=== PATIENT | female | born 2000 | race African-American/Black ===

== ENCOUNTER 2021-07-14 16:54 | Emergency (ER) | payer BC, SELFPAY ==
[2021-07-14 17:07] VITALS: BP 115/65; PULSE 75; RESP 16; TEMP 37.2; O2SAT 98
--- NOTE | 2021-07-14 17:51 | ED.URI ---
HPI - URI/Sore Throat General Chief Complaint: Upper Respiratory Infection Stated Complaint: sore throat/congestion Time Seen by Provider: 07/14/21 17:51 Source: patient Mode of arrival: ambulatory Limitations: no limitations History of Present Illness HPI Narrative: Donte Fairchild is a 20 yo female with no PMH who comes to [facility] with a sore throat since Friday states she she has felt poorly, is able to eat, and is able to swallow. States she has not been running a fever, as far she knows, no N/V/D Some parts of this dictation were generated by voice recognition software and may contain typographical and/or grammatical inaccuracies. Related Data Allergies Allergy/AdvReac Type Severity Reaction Status Date / Time No Known Allergies Allergy Verified 07/14/21 17:36 Review of Systems Review of Systems: CONSTITUTIONAL: Denies fever, chills, sweats. EYES: Denies visual changes, redness, discharge. ENT: Denies rhinorrhea, has congestion, has sore throat, otalgia. CARDIOVASCULAR: Denies chest pain, palpitations, edema. RESPIRATORY: Denies dyspnea, wheezing, cough GASTROINTESTINAL: Denies abdominal pain, nausea, vomiting, diarrhea. GENITOURINARY: Denies dysuria, hematuria, abnormal discharge SKIN: Denies rash or itching. NEUROLOGIC: Denies numbness, or focal weakness. PSYCHIATRIC: Denies anxiety or depression. [facility] Past Medical History Medical History (Updated 07/14/21 @ 18:11 by Teresa Cevallos CNP) No acute medical problems Family History Family History (Updated 07/14/21 @ 17:59 by Teresa Cevallos CNP) Grandparent Diabetes mellitus Social History Social History (Updated 07/14/21 @ 17:59 by Teresa Cevallos CNP) Smoking status: Never smoker Comments At time of signature, I agree with nursing past medical, surgical, social and family history. There is no relevant family history pertinent to the presenting complaint. Exam Narrative: GENERAL: This is a well-nourished, well-developed patient, in mild distress. HEAD: normocephalic, atraumatic. EYES: Sclera clear/white. Vision is grossly intact. EARS: External ears normal, auditory canals clear and without drainage, TMs normal without perforation. Hearing grossly intact. NOSE: External nose normal without nasal discharge, nares without redness, no rhinorrhea. THROAT: Mucous membranes moist, posterior pharynx erythema with moderate swelling, no exudate NECK: Neck supple, non-tender lymph nodes CARDIOVASCULAR: Regular rate and rhythm without murmurs, gallops, or rubs. RESPIRATORY: Clear to auscultation. Breath sounds equal bilaterally. No wheezes, rales, or rhonchi. GASTROINTESTINAL: Abdomen soft, SKIN: warm, intact with no suspicious lesions or rash, good texture and turgor. NEURO: awake, alert, and oriented to person, place and time. There were no obvious focal neurologic abnormalities. Steady gait EXTREMITIES: Normal range of motion. BACK: Nontender without deformity Course Course Emergency Course: Patient here with sore throat that occurred since Friday-she stated she had a positive strep test at home Patient strep test here was negative Started on prednisone and Mucinex Vital Signs Vital signs: Vital Signs Temperature 98.9 F 07/14/21 17:07 Pulse Rate 75 07/14/21 17:07 Respiratory Rate 16 07/14/21 17:07 Blood Pressure 115/65 07/14/21 17:07 Pulse Oximetry 98 07/14/21 17:07 Temperature 98.9 F 07/14/21 17:07 Pulse Rate 75 07/14/21 17:07 Respiratory Rate 16 07/14/21 17:07 Blood Pressure 115/65 07/14/21 17:07 Pulse Oximetry 98 07/14/21 17:07 MDM - URI/Sore Throat Differential Diagnosis Differential diagnosis: Likely upper respiratory infection, viral infection, bronchitis, pharyngitis and other Lab Data Labs: Strep Screen Presumptive Negative *(Reference Range: Negative)* Critical Care Time Critical Care Time Critical Care Time:
== END 2021-07-14 18:15 | disposition home or self-care (01) ==
PROVIDERS: Emergency Provider Nurse Practitioner
DX: J02.9 Acute pharyngitis, unspecified (principal)
CPT/HCPCS: 87081; 87880; 99203; G0463

== ENCOUNTER 2023-04-27 19:33 | Emergency (ER) | payer OTHER, MEDICAID, SELFPAY ==
[2023-04-27 19:34] VITALS: BP 132/86; PULSE 99; RESP 15; TEMP 37.3; O2SAT 100
[2023-04-27 20:05] VITALS: BP 109/75; PULSE 101; RESP 18; O2SAT 100
--- NOTE | 2023-04-27 20:52 | ED.HA ---
HPI - Headache General Chief Complaint: Headache Stated Complaint: MENDOZA/dizzy Time Seen by Provider: 04/27/23 19:50 Source: patient Mode of arrival: ambulatory Limitations: no limitations History of Present Illness HPI Narrative: Patient is a 22-year-old female who presents to the ED with report of headache. Patient reports having a persistent headache since last night. She notes having frequent HAs and states this feels typical of her usual HAs/migraines. She also reports having dizziness, described as a lightheadedness and room spinning sensation. She frequently experiences dizziness with her HAs as well. She has not tried anything for her sx's. Denies any nausea, vomiting, vision changes, weakness, photophobia, phonophobia, ear pain or ringing. Patient is currently 17 weeks gestation, G1, P0. She sees an [facility] with [facility]. She denies any vaginal bleeding. She does report minimal lower abdominal cramping, which she states has been an ongoing issue for her. She states she has been evaluated by her [employer]EWALS SPECIALIST for this. Related Data Allergies Allergy/AdvReac Type Severity Reaction Status Date / Time No Known Allergies Allergy Verified 07/14/21 17:36 Review of Systems Review of Systems: CONSTITUTIONAL: Denies fever, chills, or sweats. CARDIOVASCULAR: Denies chest pain. RESPIRATORY: Denies dyspnea. GASTROINTESTINAL: See HPI. GENITOURINARY: See HPI. SKIN: Denies rash or itching. MUSCULOSKELETAL: Denies back pain, joint pain, or myalgia. NEUROLOGIC: See HPI. All systems reviewed & are unremarkable except as noted in HPI and below PMFSH Past Medical History Medical History No acute medical problems Family History Family History Grandparent Diabetes mellitus Social History Social History Smoking status: Never smoker Exam Narrative: GENERAL: Well appearing, obese with BMI of 30, non-toxic, in no acute distress. HEAD: Normocephalic, atraumatic. EYES: PERRLA/EOMI, conjunctiva clear. No nystagmus. ENT: L TM normal. R cerumen impaction. NECK: Supple. No adenopathy, no masses. No meningeal signs. RESPIRATORY: Airway patent, respirations nonlabored. Clear to auscultation bilaterally, no rales, rhonchi, wheezing. CARDIOVASCULAR: Regular rate and rhythm without murmurs, rubs, or gallops. Radial pulses 2+ and equal bilaterally. ABDOMINAL: Soft, uterus gravid, minimal tenderness throughout lower abdomen, no significant focal pain, nondistended, no hepatosplenomegaly. Normoactive BS. MUSCULOSKELETAL: Moves all extremities. Strength/ROM intact without gross deformities. SKIN: Warm, dry, normal color. No rashes. NEURO: A&O X3. Speech clear. Cranial nerves II-XII grossly intact. Steady gait. No ataxic movements. No focal deficits. Equal plug stitcher strength bilaterally. Strength equal in upper and lower extremities bilaterally. PSYCHIATRIC: Appropriate mood and affect. Normal interaction. Course Vital Signs Vital signs: Vital Signs Temperature 99.2 F 04/27/23 19:34 Pulse Rate 99 04/27/23 19:34 Respiratory Rate 15 04/27/23 19:34 Blood Pressure 132/86 04/27/23 19:34 Pulse Oximetry 100 04/27/23 19:34 Oxygen Delivery Room Air 04/27/23 19:34 Temperature 99.2 F 04/27/23 19:34 Pulse Rate 82 04/27/23 22:19 Respiratory Rate 16 04/27/23 22:19 Blood Pressure 99/60 L 04/27/23 22:19 Pulse Oximetry 100 04/27/23 22:19 Oxygen Delivery Room Air 04/27/23 19:34 MDM - Headache MDM Narrative Medical decision making narrative: Patient presented to ED with headache, dizziness, 17 weeks gestation. Vital stable upon arrival. Patient denying vaginal bleeding, does report mild lower abdominal cramping, which she states has been an ongoing issue and her [employer] SPECIALIST is aware of. Denies severe pain. No evidence o
[2023-04-27] MEDS: ACETAMINOPHEN 500 MG TABLET 1000 MG PO (21:27)
[2023-04-27] MEDS: MECLIZINE HCL 25 MG TABLET PO (21:27)
[2023-04-27] MEDS: diphenhydrAMINE HCl INJ 50 MG/ML VIAL 25 MG IV PUSH (21:29)
[2023-04-27 21:32] LABS: Appearance Urine Clear (Clear); Bilirubin Urine Negative (Negative); Blood Urine Negative (Negative); Color Urine Yellow (Yellow); Glucose Urine UA Negative (Negative); Ketones Urine 4+ mg/dL (Negative); Leukocyte Esterase Ur Negative LEU/UL (Negative); Nitrate Urine Negative (Negative); Protein Urine Negative (Negative); Specific Grav Ur 1.023 (1.001-1.035); pH Urine 5.5 (5.0-9.0)
[2023-04-27] MEDS: SODIUM CHLORIDE 0.9% IV 1,000 ML 999 ML IV CONT ×2 (21:32→23:07)
[2023-04-27] MEDS: METOCLOPRAMIDE HCL INJ 10 MG/2 ML VIAL IV PUSH (21:32)
[2023-04-27 22:00] LABS: Add Urine Microscopic? NO
[2023-04-27] MEDS: CARBAMIDE PEROXIDE 6.5% OT SOLN 15 ML BTL 5 DROP RIGHT EAR (22:00)
[2023-04-27 22:19] VITALS: BP 99/60; PULSE 82; RESP 16; O2SAT 100
[2023-04-27] MEDS: HYDROGEN PEROXIDE 3% SOLN(*SP) 473 ML BOTTLE (22:54)
[2023-04-28 00:06] VITALS: BP 109/62; PULSE 84; RESP 14; O2SAT 100
== END 2023-04-28 00:22 | disposition home or self-care (01) ==
PROVIDERS: Emergency Provider Physician Assistant
DX: O26.892 Other specified pregnancy related conditions, second trimester (principal); H61.21 Impacted cerumen, right ear; R42 Dizziness and giddiness; Z3A.17 17 weeks gestation of pregnancy
CPT/HCPCS: 81003; 96361; 96374; 96375; 99284; A9270; J1200; J2765; J7030